=== PATIENT | male | born 1985 | race Caucasian/White ===

== ENCOUNTER 2018-05-17 09:54 | Inpatient (IN) | payer OTHER ==
--- NOTE | 2018-05-17 10:21 | HP ---
COWS - Scale Resting Pulse: 0= ID 80 or Below Sweatin= Chills/Flushing Restless Observation: 3= Extraneous Movement Pupil Size: 1= Pupils >than Normal Bone or Joint Aches: 2= Severe Diffuse Aches Runny Nose/ Eye Tearin= Runny Nose/Eyes GI Upset > 30mins: 2= Nausea/Diarrhea Tremor Observation: 2= Slight Tremor Visible Yawning Observation: 1= 1-2x During Session Anxiety or Irritability: 2=Irritable/Anxious Goose Flesh Skin: 0=Smooth Skin COWS Score: 16 CIWA Score - Admission Criteria [facility] Guidelines: Admission for Medically Managed Detox: Requires at least one of the followin. CIWA greater than 12 2. Seizures within the past 24 hours 3. Delirium tremens within the past 24 hours 4. Hallucinations within the past 24 hours 5. Acute intervention needed for co occurring medical disorder 6. Acute intervention needed for co occurring psychiatric disorder 7. Severe withdrawal that cannot be handled at a lower level of care (continued vomiting, continued diarrhea, abnormal vital signs) requiring intravenous medication and/or fluids 8. Admission ROS S - HPI Chief Complaint: i need help to stop using heroin,xanax,crack Allergies/Adverse Reactions: Allergies Allergy/AdvReac Type Severity Reaction Status Date / Time No Known Allergies Allergy Verified 05/17/18 10:25 History of Present Illness: 33 years old male with heroin ,xanax and crack dependence seeking detox, withdrawal symptom, multiple admissions in detox but keep relapsing last detox 2017 in [place] hepatitis c nicotine dependence 1 pack/day weight loss need help to stop using drugs Exam Limitations: No Limitations - Ebola screening Have you traveled outside of the country in the last 21 days: No Have you had contact with anyone from an Ebola affected area: No Do you have a fever: No - Review of Systems Constitutional: Chills, Loss of Appetite, Malaise, Night Sweats, Changes in sleep, Weakness, Unintentional Wgt. Loss EENT: reports: Tearing, Nose Congestion Respiratory: reports: No Symptoms reported Cardiac: reports: No Symptoms Reported GI: reports: Nausea, Indigestion, Abdominal cramping : reports: No Symptoms Reported Musculoskeletal: reports: Back Pain, Joint Pain, Muscle Pain, Neck Pain, Joint Stiffness Integumentary: reports: Dryness Neuro: reports: Headache, Tremors Endocrine: reports: No Symptoms Reported Hematology: reports: No Symptoms Reported, See HPI, Anemia, Blood Clots, Easy Bleeding Psychiatric: reports: No Sypmtoms Reported, Judgement Intact, Mood/Affect Appropiate, Orientated x3, other Other Systems: Reviewed and Negative Patient History - Patient Medical History Hx Anemia: No Hx Asthma: No Hx Chronic Obstructive Pulmonary Disease (COPD): No Hx Cancer: No Hx Cardiac Disorders: No Hx Congestive Heart Failure: No Hx Hypertension: No Hx Hypercholesterolemia: No Hx Pacemaker: No HX Cerebrovascular Accident: No Hx Seizures: No Hx Dementia: No Hx Diabetes: No Hx Gastrointestinal Disorders: No Hx Liver Disease: No Hx Genitourinary Disorders: No Hx Sexually Transmitted Disorders: No Hx Renal Disease (ESRD): No Hx Thyroid Disease: No Hx Human Immunodeficiency Virus (HIV): No (last 2018 negative) Hx Hepatitis C: Yes (no treatment under the care of pmd) Hx Depression: No Hx Suicide Attempt: No Hx Bipolar Disorder: No Hx Schizophrenia: No Other Medical History: no suicidal,no homicidal - Patient Surgical History Past Surgical History: No - PPD History Previous Implant?: Yes Documented Results: Negative w/o proof Implanted On Prior [facility] Admission?: No PPD to be Administered?: Yes - Smoking Cessation Smoking history: Current every day smoker Have you smoked in the past 12 months: Yes Aproximately how many cigarettes per day: 20 Cigars Per Day: 0 Hx Chewing Tobacco Use: No Initiated information on smoking cessation: Yes 'Breaking Loose' booklet given: 05/17/18 - Substance & Tx. History Hx Alcohol Use: No Hx Substance Use: Yes Substance Use Type: Cocaine, Heroin, Tranquilizers Hx Substance Use Treatment: Yes (2017 in [place]) - Substances Abused Heroin Route: Injection Frequency: Daily Amount used: 10 bags Age of first use: 24 Date of Last Use: 05/16/18 Alprazolam (Xanax) Route: Oral Frequency: 1-3 times last 30 days Amount used: 2mgs Age of first use: 24 Date of Last Use: 05/16/18 Crack Route: Smoking Frequency: 1-3 times last 30 days Amount used: 30$ Age of first use: 24 Date of Last Use: 05/13/18 Family Disease History - Family Disease History Family History: Denies Admission Physical Exam BHS - Vital Signs Vital Signs: Vital Signs Temperature 98.7 F 05/17/18 10:20 Pulse Rate 67 05/17/18 10:20 Respiratory Rate 20 05/17/18 10:20 Blood Pressure 128/90 05/17/18 10:20 O2 Sat by Pulse Oximetry (%) - Physical General Appearance: Yes: Moderate Distress, Tremorous, Irritable, Sweating, Anxious HEENTM: Yes: Normal ENT Inspection, BIANCA, Pharynx Normal Respiratory: Yes: Within Normal Limits, Lungs Clear, Normal Breath Sounds Neck: Yes: Within Normal Limits, Supple, Trachea in good position Breast: Yes: Within Normal Limits Cardiology: Yes: Within Normal Limits, Regular Rhythm, Regular Rate, S1, S2 Abdominal: Yes: Within Normal Limits, Normal Bowel Sounds, Non Tender, Soft Genitourinary: Yes: Within Normal Limits Back: Yes: Muscle Spasm Musculoskeletal: Yes: Back pain, Joint Stiffness, Muscle Pain Extremities: Yes: Tremors Neurological: Yes: telemarketing manager II-XII NML intact, Fully Oriented, Alert, Motor Strength 5/5 Integumentary: Yes: Dry, Track Powers Lymphatic: Yes: Within Normal Limits - Diagnostic (1) Opioid dependence with withdrawal Current Visit: Yes Status: Acute (2) Sedative abuse Current Visit: Yes Status: Acute (3) Cocaine abuse Current Visit: Yes Status: Acute (4) IVDU (intravenous drug user) Current Visit: Yes Status: Acute (5) Nicotine dependence Current Visit: Yes Status: Acute (6) Weight loss Current Visit: Yes Status: Acute (7) Hepatitis C Current Visit: Yes Status: Acute Cleared for Admission S - Detox or Rehab [facility] Level of Care: Medically Managed Detox Regimen/Protocol: Methadone Inpatient Rehab Admission - Rehab Decision to Admit Inpatient rehab admission?: No
[2018-05-17 10:23] VITALS: BMI 26.1
[2018-05-17] MEDS ORDERED: P-EPHED 60MG/TRIPROLIDI 2.5MG TABLET PO PRN (10:42)
[2018-05-17] MEDS ORDERED: MAG HYDROX/AL HYDROX/SIMETH 30 ML UNIT-DOSE CUP PO PRN (10:42)
[2018-05-17] MEDS ORDERED: ACETAMINOPHEN 325 MG TABLET (FP) PO PRN (10:42)
[2018-05-17] MEDS ORDERED: guaiFENesin/D-METHORPHAN HB 10 ML UNIT-DOSE CUPS PO PRN (10:42)
[2018-05-17] MEDS ORDERED: MAGNESIUM HYDROX 2400MG/30ML ORAL SUSPENSION 30 ML CUP PO PRN (10:42)
[2018-05-17] MEDS ORDERED: MAGNESIUM CITRATE 300 ML BOTTLE PO PRN (10:42)
[2018-05-17] MEDS ORDERED: IBUPROFEN 400 MG TABLET (FP) PO PRN (10:42)
[2018-05-17] MEDS ORDERED: LOPERAMIDE HCL 2 MG CAPSULE PO PRN (10:42)
[2018-05-17] MEDS ORDERED: MENTHOL/PHENOL 1 EACH UD MM PRN (10:42)
[2018-05-17] MEDS ORDERED: METHADONE HCL 10 MG TABLET (FOR DETOX USE ONLY) PO ONE ×2 (11:30→23:00)
[2018-05-17] MEDS: CYCLOBENZAPRINE HCL 10 MG TABLET (FP) PO PRN ×2 (12:12→22:12)
[2018-05-17] MEDS: diazePAM 5 MG TABLET PO PRN ×3 (12:12→22:14)
--- NOTE | 2018-05-17 14:18 | EKG ---
Test Reason : Blood Pressure : / mmHG Vent. Rate : 059 BPM Atrial Rate : 059 BPM P-R Int : 146 ms QRS Dur : 102 ms QT Int : 408 ms P-R-T Axes : 050 081 039 degrees QTc Int : 403 ms SINUS BRADYCARDIA POSSIBLE LEFT ATRIAL ENLARGEMENT INCOMPLETE RIGHT BUNDLE BRANCH BLOCK BORDERLINE ECG NO PREVIOUS ECGS AVAILABLE Confirmed by Nicko Mccord MD ([id number]) on 05/17/2018 2:18:29 PM Referred By: Confirmed By:Nicko Mccord MD
[2018-05-17] MEDS ORDERED: THIAMINE HCL 100 MG TABLET (FP) PO SCH (22:00)
[2018-05-17] MEDS ORDERED: MELATONIN 5 MG TABLETS PO PRN (22:00)
[2018-05-17] MEDS: cloNIDine HCL 0.1 MG TABLET PO SCH (22:11)
[2018-05-18 01:53] LABS: URINE APPEARANCE CLOUDY; URINE BILIRUBIN NEGATIVE (<2.0 mg/dL); URINE COLOR DKYELLOW; URINE GLUCOSE (UA) NEGATIVE (NEGATIVE); URINE KETONE NEGATIVE (NEGATIVE); URINE LEUK ESTERASE NEGATIVE (NEGATIVE); URINE NITRITE NEGATIVE (NEGATIVE); URINE PROTEIN NEGATIVE (NEGATIVE); URINE UROBILINOGEN NEGATIVE mg/dL (0.2-1.0)
[2018-05-18] MEDS: diazePAM 5 MG TABLET PO PRN ×3 (06:26→14:39)
[2018-05-18] MEDS ORDERED: METHADONE HCL 10 MG TABLET (FOR DETOX USE ONLY) PO ONE (10:00)
[2018-05-18] MEDS ORDERED: PRENATAL VITAMINS W/ FOLIC ACID TABLET (FP) PO SCH (10:00)
[2018-05-18 10:01] LABS: HEMATOCRIT 44.1 % (35.4-49); HEMOGLOBIN 15.8 GM/dL (11.7-16.9); MCH 32.4 pg (25.7-33.7); MCHC 35.7 g/dl (32.0-35.9); MEAN CELL VOLUME 90.6 fl (80-96); MEAN PLT VOLUME 9.6 fl (7.5-11.1); PLATELET COUNT 191 K/MM3 (134-434); RBC 4.86 M/mm3 (4.00-5.60); RDW 13.2 % (11.9-15.9)
[2018-05-18 10:13] LABS: ALBUMIN 4.1 g/dl (3.4-5.0); ALK PHOS 66 U/L (45-117); ANION GAP 5 MMOL/L (8-16); BILIRUBIN,TOTAL 0.5 mg/dL (0.2-1); BLOOD UREA NITROGEN 9 mg/dL (7-18); CALCIUM 9.5 mg/dL (8.5-10.1); CHLORIDE 106 mmol/L (98-107); CO2 28 mmol/L (21-32); CREATININE 1.1 mg/dL (0.55-1.3); GLUCOSE,RANDOM 111 mg/dL (74-106); POTASSIUM 4.4 mmol/L (3.5-5.1); SGOT/AST 15 U/L (15-37); SGPT/ALT 28 U/L (13-61); SODIUM 139 mmol/L (136-145); TOT PROT 7.6 g/dl (6.4-8.2)
[2018-05-18] MEDS: cloNIDine HCL 0.1 MG TABLET PO SCH (10:13)
[2018-05-18] MEDS ORDERED: NICOTINE POLACRILEX 4 MG GUM BUC PRN (10:17)
[2018-05-18] MEDS ORDERED: NICOTINE 21 MG/24 HOURS TOPICAL PATCH TD SCH (10:30)
--- NOTE | 2018-05-18 15:19 | PN ---
[facility] COWS - Scale Resting Pulse: 0= DC 80 or Below Sweatin= Chills/Flushing Restless Observation: 1= Difficult to Sit Still Pupil Size: 0= Normal to Room Light Bone or Joint Aches: 2= Severe Diffuse Aches Runny Nose/ Eye Tearin= Nasal Congestion GI Upset > 30mins: 0= None Tremor Observation of Outstretched Hands: 0= None Yawning Observation: 1= 1-2x During Session Anxiety or Irritability: 2=Irritable/Anxious Goose Flesh Skin: 3=Piloerection COWS Score: 11 BHS Progress Note (SOAP) Subjective: Interrupted Sleep, Body Aches, Anxious, Hot / Cold Sensations, Sweating. Objective: PATIENT A & O X 3, OBSERVED AMBULATING ON UNIT. IN NO ACUTE DISTRESS. 05/18/18 15:18 Vital Signs Temperature 98.2 F 05/18/18 13:14 Pulse Rate 65 05/18/18 13:14 Respiratory Rate 18 05/18/18 13:14 Blood Pressure 119/73 05/18/18 13:14 O2 Sat by Pulse Oximetry (%) Laboratory Tests 05/17/18 05/17/18 05/18/18 11:35 23:18 05:45 WBC 8.0 RBC 4.86 Hgb 15.8 Hct 44.1 MCV 90.6 MCH 32.4 MCHC 35.7 RDW 13.2 Plt Count 191 MPV 9.6 Sodium Potassium Chloride Carbon Dioxide Anion Gap BUN Creatinine Creat Clearance w eGFR Random Glucose Calcium Total Bilirubin AST ALT Alkaline Phosphatase Total Protein Albumin Urine Color Dkyellow Urine Appearance Cloudy Urine pH 5.0 Ur Specific [place] 1.023 Urine Protein Negative Urine Glucose (UA) Negative Urine Ketones Negative Urine Blood Negative Urine Nitrite Negative Urine Bilirubin Negative Urine Urobilinogen Negative Ur Leukocyte Esterase Negative RPR Titer HIV 1&2 Antibody Screen Negative HIV P24 Antigen Negative 05/18/18 05/18/18 05:45 05:45 WBC RBC Hgb Hct MCV MCH MCHC RDW Plt Count MPV Sodium 139 Potassium 4.4 Chloride 106 Carbon Dioxide 28 Anion Gap 5 L BUN 9 Creatinine 1.1 Creat Clearance w eGFR > 60 Random Glucose 111 H Calcium 9.5 Total Bilirubin 0.5 AST 15 ALT 28 Alkaline Phosphatase 66 Total Protein 7.6 Albumin 4.1 Urine Color Urine Appearance Urine pH Ur Specific [place] Urine Protein Urine Glucose (UA) Urine Ketones Urine Blood Urine Nitrite Urine Bilirubin Urine Urobilinogen Ur Leukocyte Esterase RPR Titer Nonreactive HIV 1&2 Antibody Screen HIV P24 Antigen LABS NOTED. Assessment: 05/18/18 15:19 WITHDRAWAL SYMPTOMS. Plan: CONTINUE DETOX. INCREASE DAILY PO FLUID INTAKE.
[2018-05-18 17:52] VITALS: BP 130/61; PULSE 57; TEMP 99.5
--- NOTE | 2018-05-18 17:53 | PN ---
[facility] Progress Note Note: Patient states wants to leave. [facility] family has made arrangements for him to continue his detox at [facility], in [place], [place]. Patient is alert/oriented/steady gait. Patient c/o continued withdrawal symptoms. No objective signs or symptoms noted. Discussed increasing methadone. Patient refused. Vital Signs 05/18/18 17:51 Temperature 99.5 F Pulse Rate 57 L Respiratory 78 H Rate Blood Pressure 130/61 Explained the benefits of continuing detox or at least waiting until am to leave. Patient adamant about leaving tonight rather than in am. Discussed. risk of relapse and overdose. Declined Narcan kit. Encouraged to seek immediate help if relapses. Patient left AMA.
--- NOTE | 2018-05-18 17:57 | DS ---
[facility] Detox Discharge Summary Admission Date: 05/17/18 Discharge Date: 05/18/18 - History Present History: Cocaine Dependence, Opioid Dependence, Sedative Dependence Additional Comments: Patient with hx opiate use disorder and also xanax and cocaine use. - Physical Exam Results Vital Signs: Vital Signs Temperature 99.5 F 05/18/18 17:51 Pulse Rate 57 L 05/18/18 17:51 Respiratory Rate 78 H 05/18/18 17:51 Blood Pressure 130/61 05/18/18 17:51 O2 Sat by Pulse Oximetry (%) Pertinent Admission Physical Exam Findings: Patient was admitted with opiate withdrawal symptoms and started on a methadone detox protocol w/ PRN Valium. Laboratory Last Values WBC 8.0 K/mm3 (4.0-10.0) 05/18/18 05:45 RBC 4.86 M/mm3 (4.00-5.60) 05/18/18 05:45 Hgb 15.8 GM/dL (11.7-16.9) 05/18/18 05:45 Hct 44.1 % (35.4-49) 05/18/18 05:45 MCV 90.6 fl (80-96) 05/18/18 05:45 MCH 32.4 pg (25.7-33.7) 05/18/18 05:45 MCHC 35.7 g/dl (32.0-35.9) 05/18/18 05:45 RDW 13.2 % (11.9-15.9) 05/18/18 05:45 Plt Count 191 K/MM3 (134-434) 05/18/18 05:45 MPV 9.6 fl (7.5-11.1) 05/18/18 05:45 Sodium 139 mmol/L (136-145) 05/18/18 05:45 Potassium 4.4 mmol/L (3.5-5.1) 05/18/18 05:45 Chloride 106 mmol/L (98-107) 05/18/18 05:45 Carbon Dioxide 28 mmol/L (21-32) 05/18/18 05:45 Anion Gap 5 MMOL/L (8-16) L 05/18/18 05:45 BUN 9 mg/dL (7-18) 05/18/18 05:45 Creatinine 1.1 mg/dL (0.55-1.3) 05/18/18 05:45 Creat Clearance w eGFR > 60 (>60) 05/18/18 05:45 Random Glucose 111 mg/dL (74-106) H 05/18/18 05:45 Calcium 9.5 mg/dL (8.5-10.1) 05/18/18 05:45 Total Bilirubin 0.5 mg/dL (0.2-1) 05/18/18 05:45 AST 15 U/L (15-37) 05/18/18 05:45 ALT 28 U/L (13-61) 05/18/18 05:45 Alkaline Phosphatase 66 U/L (45-117) 05/18/18 05:45 Total Protein 7.6 g/dl (6.4-8.2) 05/18/18 05:45 Albumin 4.1 g/dl (3.4-5.0) 05/18/18 05:45 Urine Color Dkyellow 05/17/18 23:18 Urine Appearance Cloudy 05/17/18 23:18 Urine pH 5.0 (5.0-8.0) 05/17/18 23:18 Ur Specific [place] 1.023 (1.010-1.035) 05/17/18 23:18 Urine Protein Negative (NEGATIVE) 05/17/18 23:18 Urine Glucose (UA) Negative (NEGATIVE) 05/17/18 23:18 Urine Ketones Negative (NEGATIVE) 05/17/18 23:18 Urine Blood Negative (NEGATIVE) 05/17/18 23:18 Urine Nitrite Negative (NEGATIVE) 05/17/18 23:18 Urine Bilirubin Negative (<2.0 mg/dL) 05/17/18 23:18 Urine Urobilinogen Negative mg/dL (0.2-1.0) 05/17/18 23:18 Ur Leukocyte Esterase Negative (NEGATIVE) 05/17/18 23:18 RPR Titer Nonreactive (NONREACTIVE) 05/18/18 05:45 HIV 1&2 Antibody Screen Negative 05/17/18 11:35 HIV P24 Antigen Negative 05/17/18 11:35 Labs reviewed. Reviewed change in tolerance, overdose risks and prevention. Discussed Narcan as an emergency overdose reversal. Patient declined order for Narcan Kit. - Treatment Hospital Course: Detox Protocol Followed (Patient did not complete protocol. Strong possibility of relapse discussed. Patient declined suggestions for increasing methadone..) Patient has Accepted a Rehab Referral to: Patient states has own referral to [facility] in [place]. - Medication Discharge Medications: Ambulatory Orders NK [No Known Home Medication] 05/17/18 - Diagnosis (1) Cocaine abuse Status: Chronic (2) Nicotine dependence Status: Chronic Qualifiers: Nicotine product type: cigarettes Substance use status: uncomplicated Qualified Code(s): F17.210 - Nicotine dependence, cigarettes, uncomplicated (3) Opioid dependence with withdrawal Status: Acute (4) Sedative abuse Status: Chronic (5) Hepatitis C Status: Chronic Qualifiers: Viral hepatitis chronicity: unspecified Hepatic coma status: without hepatic coma Qualified Code(s): B19.20 - Unspecified viral hepatitis C without hepatic coma - AMA Did Patient Leave Against Medical Advice: Yes
[2018-05-19] MEDS ORDERED: METHADONE HCL 5 MG TABLET (FOR DETOX USE ONLY) PO ONE (10:00)
[2018-05-20] MEDS ORDERED: METHADONE HCL 5 MG TABLET (FOR DETOX USE ONLY) PO ONE (10:00)
[2018-05-21] MEDS ORDERED: METHADONE HCL 10 MG TABLET (FOR DETOX USE ONLY) PO ONE (10:00)
[2018-05-22] MEDS ORDERED: METHADONE HCL 5 MG TABLET (FOR DETOX USE ONLY) PO ONE (06:00)
== END 2018-05-18 18:10 | disposition left against medical advice (07) | DRG 770 ==
LOC: YASAS 09:54 → Y6N 10:58
PROVIDERS: ADMIT Surgery; ATTEND Surgery
PROC: HZ2ZZZZ Detoxification Services for Substance Abuse Treatment (ICD-10-PCS; principal; 2018-05-17)
DX: F11.23 Opioid dependence with withdrawal (principal); F13.10 Sedative, hypnotic or anxiolytic abuse, uncomplicated; F14.10 Cocaine abuse, uncomplicated; F17.210 Nicotine dependence, cigarettes, uncomplicated; B19.20 Unspecified viral hepatitis C without hepatic coma; R63.4 Abnormal weight loss; Z68.26 Body mass index [BMI] 26.0-26.9, adult
CPT/HCPCS: 36415; 80053; 81003; 85027; 86593; 87389; 93005; 93010; J0735